=== PATIENT | female | born 1985 | race Caucasian/White ===

== ENCOUNTER 2017-04-15 04:36 | Emergency (ER) | payer BC ==
[~2017-04-15] VITALS: Ht 157.5 cm; Wt 94.8 kg
[~2017-04-15 04:36] MED LIST: ENDOCET 5-3251 EACH PO; GABAPENTIN400 MG PO; IBUPROFEN800 MG PO; Motrin PO; NAPROSYN500 MG PO; NATALCARE RX1 TABLE1 PO; PERCOCET 10/1 TABLET PO; PERCOCET 5/31 TABLET PO; PRENATAL TABLE1 EAC3 PO; SYNTHROID112 MCG PO; VITAMIN D31000 UNIT PO
[2017-04-15 05:29] LABS: ADD MIUA? YES; BILIRUBIN NEGATIVE; BLOOD NEGATIVE; COLOR YELLOW ((YELLOW)); GLUCOSE (STRIP) NEGATIVE; KETONES NEGATIVE; LEUKOCYTES TRACE; NITRITE NEGATIVE; PROTEIN (STRIP) NEGATIVE; SPECIFIC GRAVITY 1.009 (1.000-1.030); UROBILINOGEN 0.2 MG/DL (0.2-1.0)
[2017-04-15 05:33] LABS: BACTERIA NONE SEEN /HPF; EPITHELIAL CELLS RARE /HPF; MUCUS TRACE /LPF; RED BLOOD CELLS 0-5 /HPF (0-5); UCUL ADDED? NO; WHITE BLOOD CELLS 0-5 /HPF (0-5)
[2017-04-15 05:34] LABS: EOSINOPHIL (%) 1.1 % (0-5); EOSINOPHIL COUNT 0.1 K/uL (0-0.3); HEMATOCRIT 39.9 % (36.0-46.0); IMMATURE GRANULOCYTE (%) 0.8 % (0.0-0.7); IMMATURE GRANULOCYTE COUNT 0.1 K/uL; INSTRUMENT ABS NEUTROPHIL CT 4.2 K/uL; LYMPHOCYTE COUNT 1.7 K/uL (1.0-2.8); MCH 30.6 PG (29.0-34.0); MCHC 33.6 G/DL (30.0-36.0); MCV 91.1 FL (83-99); MEAN PLAT.VOLUME 10.5 uM^3 (9.5-12.4); MONOCYTE (%) 8.4 % (3-12); MONOCYTE COUNT 0.6 K/uL (0-0.8); NEUTROPHIL (%) 63.4 % (45-76); NEUTROPHIL COUNT 4.2 K/uL (1.8-6.4); PLATELET COUNT 229 K/uL (156-360); RBC DIS.WIDTH-CV 12.8 % (11.8-14.6); RBC DIS.WIDTH-SD 42.5 % (39-53); RED BLOOD COUNT 4.38 M/uL (3.80-5.20); WHITE BLOOD COUNT 6.6 K/uL (4.1-10.2)
[2017-04-15 05:35] LABS: CHLORIDE 108 mEq/L (99-109); POTASSIUM 3.9 mEq/L (3.7-5.4); SODIUM 141 mEq/L (136-147)
[2017-04-15 05:37] LABS: GLUCOSE 95 mg/dL (70-99)
[2017-04-15 05:39] LABS: ANION GAP 8 MEQ/L (2-14); TOTAL BILIRUBIN 0.7 mg/dL (0.0-1.0)
[2017-04-15 05:41] LABS: ALKALINE PHOSPHATASE 55 IU/L (3-129); GFR ESTIMATE (CALCULATED) > 59 mL/min/
[2017-04-15 05:42] LABS: UREA NITROGEN (BUN) 12 mg/dL (9-23)
[2017-04-15 05:51] LABS: CK-MB 0.8 ng/mL (0.0-4.9)
[2017-04-15 05:55] LABS: INTER. NORMALIZED RATIO 1.1; PROTHROMBIN TIME 10.7 (9.2-11.2)
[2017-04-15 05:59] LABS: CREATINE KINASE 88 IU/L (1-294); TOTAL CK 88 IU/L (1-294)
[2017-04-15] MEDS ORDERED: FLAGYL500 MG PO (06:03)
[2017-04-15 06:11] VITALS: BP 135/84
[2017-04-16 13:38] LABS: CHLAMYDIA TRACHOMATIS NEGATIVE; NEISSERIA GONORRHOEAE NEGATIVE
== END 2017-04-15 06:14 | disposition home or self-care (01) ==
LOC: EME 04:36
PROVIDERS: Emergency Medicine
DX: N76.0 Acute vaginitis (principal); T19.2XXA Foreign body in vulva and vagina, initial encounter; F17.200 Nicotine dependence, unspecified, uncomplicated
CPT/HCPCS: 80053; 81003; 82550; 82553; 85025; 85610; 85730; 87210; 87491; 87591; 99281; 99284

== ENCOUNTER 2017-12-29 10:50 | Emergency (ER) | payer OTHER ==
[~2017-12-29] VITALS: Ht 160 cm; Wt 95.5 kg
[~2017-12-29 10:50] MED LIST changes: +FLAGYL500 MG PO
[2017-12-29 14:28] LABS: SOURCE SWAB
[2017-12-29 15:35] LABS: APPEARANCE CLEAR ((CLEAR)); BILIRUBIN NEGATIVE; BLOOD NEGATIVE; COLOR YELLOW ((YELLOW)); GLUCOSE (STRIP) NEGATIVE; KETONES NEGATIVE; LEUKOCYTES NEGATIVE; NITRITE NEGATIVE; PROTEIN (STRIP) NEGATIVE; SPECIFIC GRAVITY 1.012 (1.000-1.030); UROBILINOGEN 0.2 MG/DL (0.2-1.0)
[2017-12-29 15:39] VITALS: BP 132/99
== END 2017-12-29 15:40 | disposition home or self-care (01) ==
LOC: EME 10:50
PROVIDERS: Physician Assistant
DX: N89.8 Other specified noninflammatory disorders of vagina (principal); E07.9 Disorder of thyroid, unspecified; F17.200 Nicotine dependence, unspecified, uncomplicated
CPT/HCPCS: 81003; 81025; 87210; 87491; 87591; 99281; 99284; J0696